=== PATIENT | male | born 2000 | race Caucasian/White ===

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

== ENCOUNTER 2022-02-24 19:17 | Emergency (ER) | payer OTHER, SELFPAY ==
[2022-02-24 19:18] VITALS: BP 144/98; PULSE 150; RESP 19; TEMP 38.2; O2SAT 100; BMI 25.8
[2022-02-24 19:20] VITALS: BP 144/98; PULSE 150; RESP 19; TEMP 38.2; O2SAT 100
--- NOTE | 2022-02-24 19:47 | EX.ED.VIS.UR ---
HPI HPI - URI History of Present Illness Chief Complaint: Cold Sx Narrative Narrative: 21-year-old male presenting with fever, chills, body aches for the last couple of days. He believes he has COVID. He does not have any sick contacts... No chest pain. No shortness of breath. He does admit to some lightheadedness and fevers as high as 101. He last took ibuprofen at 2 PM.. No known medicine allergies. No nausea or vomiting. Patient eating and drinking normally and making normal urine and stool. ROS ROS ED Constitutional Constitutional ED: Reports chills and fever(s) Eyes Eyes: Denies blurry vision or diplopia ENT ENT ED: Reports rhinorrhea and sore throat Cardiovascular Cardiovascular: Reports palpitations; Denies chest pain Respiratory/Chest Respiratory/Chest: Reports cough; Denies dyspnea Gastrointestinal Gastrointestinal: Denies abdominal pain, nausea or vomiting Genitourinary Genitourinary ED: Denies dysuria or hematuria Musculoskeletal Musculoskeletal: Reports myalgias; Denies arthralgias or neck pain Integumentary Denies abscess or rash Neurologic Neurologic: Reports headache(s); Denies paresthesias or weakness Psychiatric Psychiatric: Denies anxiety or depression PFSH PFSH Medical History Non-smoker Home Medications NK 02/24/22 [History Last Taken Unknown] Allergy/AdvReac Type Severity Reaction Status Date / Time POLIO VACCINE Allergy Hives Uncoded 02/24/22 19:21 Social History Smoking Status: Never smoker EXAM Physical Exam Const Vital Signs: 02/24/22 19:18 02/24/22 19:20 02/24/22 19:36 Temperature 100.8 F H 100.8 F H Temperature Source Temporal Temporal Pulse Rate 150 H 150 H Respiratory Rate 19 H 19 H Respiratory Effort Normal Respiratory Pattern Normal Blood Pressure 144/98 H 144/98 H Blood Pressure Mean 113 113 Pulse Ox 100 100 Oxygen Delivery Method Room Air Room Air 02/24/22 20:56 Temperature Temperature Source Pulse Rate 101 H Respiratory Rate 15 Respiratory Effort Respiratory Pattern Blood Pressure 129/75 H Blood Pressure Mean Pulse Ox 100 Oxygen Delivery Method Positive well nourished General Appearance ED: NAD; Negative for pallor HEENT normocephalic and atraumatic Eyes PERRL and EOMs intact bilaterally Neck no lymphadenopathy, supple and no meningeal signs Resp normal respiratory effort and clear to auscultation bilaterally Cardio Rate: tachycardic Rhythm: regular rhythm Neuro oriented x3, CN's II-XII intact bilaterally and no sensory deficits noted Sensorium / Orientation: alert Motor Exam: strength 5/5 throughout Psych mental status grossly normal Skin General Skin Exam: Negative for jaundice or pallor Rashes: no rashes MDM MDM MDM Narrative Medical decision making narrative: Patient presenting with URI symptoms. He is febrile with a temperature of 100.8 and a heart rate of 150 on arrival. The patient is nontoxic-appearing and states he did take ibuprofen at 2 PM. He is not having any nausea or vomiting. Patient wants to be tested for COVID-19. He will be given Tylenol 1 g p.o. here. On examination his lungs are clear to auscultation. He slightly tachycardic but I believe this is because he is febrile. Patient's COVID testing came back negative although he has influenza A. Patient's heart rate is come down with Tylenol. I counseled him to alternate Tylenol and ibuprofen. He is to drink plenty of water. He was given a work note. Patient stable discharge. Impression: 1. Influenza A 2. Febrile illness 3. Body aches 4. Cough Lab Data Attestation: I reviewed the patient's lab results. Discharge Plan Triage Chief Complaint: Cold Sx ED Provider: Carlos Alberto Gaxiola Dx/Rx/DC Orders Instructions: ED Influenza (Adult) Prescriptions: No Action NK RF: 0 Stand Alone Forms: ED Work / School Excuse Primary Care Provider: Erwin Mi Referrals: Erwin Mi DO [Primary Care Provider] - Disposition Disposition: Home, Self Care Discharge Date/Time: 02/24/22 20:58
[2022-02-24] MEDS: Acetaminophen 500 MG Tablet 1000 MG PO (19:58)
[2022-02-24 20:56] VITALS: BP 129/75; PULSE 101; RESP 15; O2SAT 100
== END 2022-02-24 20:58 | disposition home or self-care (01) ==
PROVIDERS: Emergency Provider Student in an Organized Health Care Education/Training Program; PCP Student in an Organized Health Care Education/Training Program; Visit Provider Student in an Organized Health Care Education/Training Program
DX: J10.1 Influenza due to other identified influenza virus with other respiratory manifestations (principal)
CPT/HCPCS: 87428; 99282

== ENCOUNTER 2024-10-22 16:21 | Emergency (ER) | payer OTHER, SELFPAY ==
[2024-10-22 16:22] VITALS: BP 165/111; PULSE 102; RESP 16; TEMP 36.8; O2SAT 100; BMI 23.1
[2024-10-22 17:02] VITALS: BP 150/90; PULSE 109; RESP 16; O2SAT 100
--- NOTE | 2024-10-22 17:08 | EKG12_ITS ---
Test Reason : HTN/CP Blood Pressure : */* mmHG Vent. Rate : 107 BPM Atrial Rate : 107 BPM P-R Int : 144 ms QRS Dur : 98 ms QT Int : 326 ms P-R-T Axes : 61 86 26 degrees QTcB Int : 435 ms Sinus tachycardia Otherwise normal ECG Confirmed by RANDELL HICKMAN, KIRSTY ([id number]), city editor ISAAC FUNG ([id number]) on 10/29/2024 6:51:21 AM Referred By: TB Confirmed By: KIRSTY MEJIAS MD
--- NOTE | 2024-10-22 17:18 | EDS_ITS ---
HPI History of Present Illness Chief Complaint: Hypertension Narrative Narrative: Patient is a 24-year-old male no known significant past medical history who presented to the emerged part with a chief complaint of elevated blood pressure and whole body numbness twice. He states that this has been going on for a week and throughout the week he noted that twice he had whole body numbness and felt like his muscles were cramping on him. Patient states that this is never happened before. Patient denies any IV drug use denies any smoking or alcohol use. Patient denies any recent sick contacts. Patient states that currently he states that his chest is bothering him and states that this is constant nothing makes this better or worse which has been going on for the past week and is not getting better. He states that he took his blood pressure work today and noted that he had a systolic in the 170s. PFSH [facility] Medical History Non-smoker Home Medications ?Medication ?Instructions ?Recorded ?Last Taken ?Type NK 02/24/22 Unknown History Allergy/AdvReac Type Severity Reaction Status Date / Time poliomyelitis vaccine, live Allergy Hives Verified 10/22/24 16:22 oral poliomyelitis vaccine,killed Allergy Hives Verified 10/22/24 16:22 Social History Smoking Status: Never smoker ROS ROS ED ROS Narrative Constitutional: Denies any fevers, chills, headaches, lightness, dizziness Eyes: Denies change in vision double vision blurry vision Cardiovascular: Complains of chest pain as noted above denies any palpitations Respiratory: Denies any coughing wheezing shortness of breath Abdomen: Denies abdominal pain nausea vomit diarrhea : Denies any urinary symptoms Neurological: Denies any numbness, weakness, tingling Musculoskeletal: Denies back pain Skin: Denies any rashes or lesions EXAM Physical Exam Narrative Exam Narrative: General: Patient lying in bed rest comfortably did not appear to be in acute distress Head: Atraumatic, normocephalic Eyes: PERRL bilaterally, EOMI bilaterally, no conjunctival injection noted Neck: Soft, supple, trachea midline Cardiovascular: Regular rate and rhythm no murmurs gallops rubs noted Respiratory: Clear to auscultation bilaterally no rales rhonchi or wheezes noted Abdomen: Soft, nondistended, nontender to palpation, bowel sounds present x 4 Extremities: +5/5 strength noted in the bilateral upper and lower extremities, radial pulses +2/4 in the bilateral extremities Neurological: Patient following commands knew that he was at [facility] year is 2024. NIH of 0 GCS 15 patient completed finger-nose test bilaterally thigh difficulty Skin: Warm, dry, intact no rashes or lesions noted Const Vital Signs: 10/22/24 16:22 10/22/24 17:02 10/22/24 17:03 Temperature 98.2 F Temperature Source Oral Pulse Rate 102 H 109 H Respiratory Rate 16 16 Respiratory Effort Normal Non-Labored Respiratory Pattern Normal Blood Pressure 165/111 H 150/90 H Blood Pressure Mean 129 110 Pulse Ox 100 100 Oxygen Delivery Method Room Air Room Air 10/22/24 17:25 10/22/24 18:37 Temperature Temperature Source Pulse Rate Respiratory Rate Respiratory Effort Respiratory Pattern Blood Pressure 145/85 H Blood Pressure Mean 105 Pulse Ox Oxygen Delivery Method Room Air MDM MDM MDM Narrative Medical decision making narrative: Patient is a 24-year-old male who presented to the emerged part with a chief complaint of hypertension. On the differential diagnose includes but not limited to central hypertension, electrolyte abnormality, pneumonia. Once workup is obtained reviewed he will be reevaluated. Patient CBC reviewed showed no evidence leukocytosis white blood count normal at 9.8, hemoglobin of 16.6, platelet count was 300 and normal. Patient sodium normal 137, potassium was mildly low at 3.2 he will be given potassium supplementation in the emergency department. Patient's creatinine normal at 0.92, troponin normal at 5 EKG reviewed showed sinus tachycardia the rate of 107 bpm. Patient TSH normal at 1.07. Patient chest x-ray reviewed showed no acute cardiopulmonary processes. On reevaluation the patient is feeling better his blood pressure is improved to a systolic of the 142. He was advised to get a blood pressure cuff and take his blood pressure randomly 2-3 times a day write it down and take this to his primary care physician appointment that is on Monday. He was encouraged to return with worsening symptoms and concerns. According to patient and mother at bedside they have a strong family history of hypertension but not diagnosed at a young age. All question concerns answered he is discharged home in stable condition Lab Data Labs: Laboratory Results - last 24 hr 10/22/24 17:17 WBC 9.8 RBC 5.52 Hgb 16.6 H Hct 45.2 MCV 81.9 MCH 30.1 MCHC 36.7 H RDW Std Deviation 35.5 RDW Coeff of Ana 11.9 Plt Count 300 MPV 9.1 Immature Gran % (Auto) 0.300 Neut % (Auto) 67.9 Lymph % (Auto) 22.6 Boundary % (Auto) 8.0 Eos % (Auto) 0.5 Baso % (Auto) 0.7 Absolute Neuts (auto) 6.6 Absolute Lymphs (auto) 2.21 Nucleated RBC % 0 Sodium 137 Potassium 3.2 L Chloride 104 Carbon Dioxide 26.0 Anion Gap 7 BUN 15 Creatinine 0.92 Estim Creat Clear Calc 121.85 Est GFR (MDRD) Af Amer 132 Est GFR (MDRD) Non-Af 109 BUN/Creatinine Ratio 16.3 Glucose 95 Calcium 9.6 Troponin I High Sens 5 TSH 1.070 Radiography Diagnostic Testing: Clinical Impression(s) from Imaging Studies Chest X-Ray 10/22/24 17:34 IMPRESSION: No acute radiographic abnormalities. Electronically Signed: Zackary Sarabia MD at 18:34 EST , Discharge Plan Triage Chief Complaint: Hypertension ED Provider: Orville Ortiz Dx/Rx/DC Orders Clinical Impression: Benign hypertension Prescriptions: No Action NK Primary Care Provider: Erwin Mi Referrals: Erwin Mi DO [Primary Care Provider] - Activity Restrictions/Additional Instructions: Follow-up with your primary care physician on Monday or schedule appointment. Take the blood pressure randomly throughout the day as we discussed here write it down the time he took it and what the blood pressure reading was. Return with worsening symptoms or concerns. Print Language: Citizen Of [place] Disposition Disposition: Home, Self Care
[2024-10-22 17:24] LABS: Absolute Lymphocyte Count 2.21 X10^3/uL (0.83-4.51); Absolute Neutrophil Count 6.6 X10^3/uL (2.0-7.7); Basophil# 0.07 X10^3/uL; Basophil% 0.7 % (0-1); Eosinophil# 0.05 X10^3/uL; Eosinophils% 0.5 % (0-5); Hematocrit 45.2 % (40-54); Hemoglobin 16.6 g/dL (13.0-16.5); Lymphocyte # 2.21 X10^3/ul (0.83-4.51); Lymphocyte % 22.6 % (19-41); Mean Corp Hgb Conc 36.7 g/dL (32-36); Mean Corpuscular Hgb 30.1 pg (27.0-32.0); Mean Corpuscular Volume 81.9 fL (80-94); Mean Platelet Vol. 9.1 fl (6.2-12.0); Monocyte# 0.78 X10^3/uL; NRBC Flagged by Analyzer 0 % (0-5); Neutrophil # 6.64 X10^3/uL (2.7-7.7); Neutrophil % 67.9 % (47-70); Platelet Count 300 K/mm3 (150-450); RBC Distribution Width CV 11.9 % (11.6-14.6); RBC Distribution Width SD 35.5 fl (35.1-43.9); Red Blood Count 5.52 M/mm3 (4.6-6.2); White Blood Count 9.8 K/mm3 (4.4-11.0)
--- NOTE | 2024-10-22 17:34 | RAD_ITS ---
INDICATION: chest pain EXAMINATION/TECHNIQUE: X-RAY - XR Chest 2 Views COMPARISON: None. FINDINGS: The lungs are clear. The cardiomediastinal silhouette is unremarkable. No pleural effusion or pneumothorax. No acute osseous abnormalities. RAD/Chest PA and Lateral IMPRESSION: No acute radiographic abnormalities. Electronically Signed: Zackary Sarabia MD at 18:34 EST ,
[2024-10-22 17:56] LABS: Anion Gap 7 (5-15); BUN 15 mg/dL (7-18); BUN/Creat Ratio 16.3 RATIO (10-20); Calcium,Total 9.6 mg/dL (8.5-10.1); Chloride 104 mmol/L (98-107); Creatinine, Serum 0.92 mg/dL (0.70-1.30); EST Glomerular Filtration Rate 109 mL/min (>60); Est Glom Filt Rate - Afr Amer 132 mL/min (>60); Estimated Creatinine Clearance 121.85 ml/min; Glucose 95 mg/dL (74-106); Potassium 3.2 mmol/L (3.5-5.1); Sodium Level 137 mmol/L (136-145); Troponin-I HS 5 pg/mL (3.0-78.0)
[2024-10-22 18:37] VITALS: BP 145/85
[2024-10-22 19:08] VITALS: BP 145/85; PULSE 109; RESP 16; TEMP 36.8; O2SAT 100
[2024-10-22] MEDS: Potassium Chloride Oral Soln 20 MEQ/15 ML UDC 40 MEQ PO (19:34)
== END 2024-10-22 19:37 | disposition home or self-care (01) ==
PROVIDERS: Emergency Provider Emergency Medicine; PCP Student in an Organized Health Care Education/Training Program; Visit Provider Emergency Medicine
DX: I10 Essential (primary) hypertension (principal)
CPT/HCPCS: 71046; 80048; 84443; 84484; 85025; 93005; 99284; A4216

== ENCOUNTER → 2025-09-05 | Outpatient (CLI) | payer OTHER, SELFPAY ==
[2025-09-05 11:23] LABS: Anion Gap 14 (5-15); BUN 18 mg/dL (4-19); BUN/Creat Ratio 17.8 RATIO (10-20); Calcium,Total 10.1 mg/dL (7.6-11.0); Carbon Dioxide 23.5 mmol/L (21.0-32.0); Chloride 99 mmol/L (98-108); Glucose 139 mg/dL (70-99); Potassium 3.9 mmol/L (3.3-5.1)
[2025-09-12 00:07] LABS: ALDOSTERONE/RENIN RATIO 0.1 (0.0-30.0)
== END | disposition home or self-care (01) ==
LOC: LAB 10:40
PROVIDERS: PCP Student in an Organized Health Care Education/Training Program; Referring Provider Student in an Organized Health Care Education/Training Program; Visit Provider Student in an Organized Health Care Education/Training Program
DX: I10 Essential (primary) hypertension (principal)
CPT/HCPCS: 36415; 80048; 82088; 84244